=== PATIENT | female | born 1950 | race Caucasian/White ===

== ENCOUNTER → 2018-04-01 08:53 | Outpatient (CLI) | payer MEDICARE, BC, SELFPAY ==
--- NOTE | 2018-04-01 09:17 | CA_ITS ---
PROCEDURE: 2-D M-mode and color Doppler study INDICATIONS FOR THE TEST: Chest painX COPD Heart Murmur Tobacco Smoking Palpitations Fatigue Syncope Edema HypertensionXDiabetes Mellitus Rheumatic Fever SOBXDOEXObesityXHyperlipidemiaX Family History HD Additional History PATIENT INFORMATION HEIGHT: 61 WEIGHT:173 GENDER: Female B/P:164/100 2-D/M-MODE INTERPRETATION: 2-D MEASUREMENTS OBSERVED VALUES IN CMS Right Ventricular Dimension (RVDd) 1.6 Interventricular Septum (Thickness)(IVsd) 1.2 Left Ventricular Internal Dimensions(LVIDd) 4.2 Left Ventricular Posterior Wall (Thickness)(LVPWd) 1.2 Aortic Root 2.5 Aortic Cusp Separation .8 Left Atrial Dimensions (LAD) 4.0 2D 1. Left atrium is mildly enlarged, left ventricle is normal size, there is mild concentric left ventricular hypertrophy, visually estimated ejection fraction 55% with no obvious regional wall motion abnormality. 2. The right atrium and right ventricle are normal size and contractility. 3. The aortic valve is thickened and calcified leaflet continue to display mobility. 4. The mitral and tricuspid valve leaflets are minimally thickened. 5. The pulmonic valve is poorly visualized 6. No significant pericardial effusion noted. DOPPLER INTERROGATION: Doppler interrogation of the aortic, mitral and tricuspid valve reveals presence of mild aortic, mild mitral and tricuspid regurgitation, tricuspid and jet velocity is insufficient for calculation of the right ventricular systolic pressure, grade 1 diastolic dysfunction seen without tissue Doppler evidence of raised left atrial pressure. CONCLUSION: 1. Mildly enlarged left atrium, normal left ventricular size, mild concentric left ventricular hypertrophy, visually estimated ejection fraction 55% with no obvious regional wall motion abnormality, grade 1 diastolic dysfunction seen without tissue Doppler evidence of raised left atrial pressure. 2. Mild aortic, mild mitral and tricuspid regurgitation. 3. No significant pericardial effusion noted.
== END ==
PROVIDERS: PCP Family Medicine; Visit Provider Family Medicine
DX: R06.02 Shortness of breath (principal)
CPT/HCPCS: 93306

== ENCOUNTER → 2018-08-30 12:40 | Outpatient (CLI) | payer MEDICARE, BC, SELFPAY ==
[2018-08-30 12:44] LABS: Adenovirus F 40/41, stool Not Detected (NotDetected); Astrovirus Not Detected (NotDetected); Campylobacter Not Detected (NotDetected); Cryptosporidium Not Detected (NotDetected); Cyclospora Cayetanesis Not Detected (NotDetected); Entamoeba histolytica Not Detected (NotDetected); Enteroaggregative E coli Not Detected (NotDetected); Enteropathogenic E coli Not Detected (NotDetected); Enterotoxigenic E coli Not Detected (NotDetected); Giardia lamblia Not Detected (NotDetected); Norovirus Not Detected (NotDetected); Plesimonas Shigalloides, PCR Not Detected (NotDetected); Rotavirus A Not Detected (NotDetected); Salmonella, PCR Not Detected (NotDetected); Sapovirus Not Detected (NotDetected); Shiga-like toxin E coli Not Detected (NotDetected); Shigella Enterovasive E coli Not Detected (NotDetected); Vibrio Cholerae Not Detected (NotDetected); Vibrio, PCR Not Detected (NotDetected); Yersinia Entercolitica, PCR Not Detected (NotDetected)
[2018-08-30 15:16] LABS: Clostridium Difficile A/B, PCR Detected (NotDetected)
== END ==
PROVIDERS: PCP Family Medicine; Visit Provider Nurse Practitioner Acute Care
DX: R19.7 Diarrhea, unspecified (principal)
CPT/HCPCS: 87507

== ENCOUNTER → 2018-10-10 13:10 | Outpatient (POV) | payer MEDICARE, BC, SELFPAY | PROVIDERS: Visit Provider Nurse Practitioner Acute Care | DX: Z00.00 Encounter for general adult medical examination without abnormal findings (principal) ==

== ENCOUNTER → 2018-11-25 09:31 | Outpatient (CLI) | payer MEDICARE, BC, SELFPAY ==
--- NOTE | 2018-11-25 09:37 | MM_ITS ---
MM Dig screening mamm BI w/CAD CAD Screening COMPARISON: Digital mammograms with CAD 05/18/2017 and analog mammograms 07/12/2006 INDICATION: There is no personal or family history of breast cancer TECHNIQUE: Standard CC and MLO images were obtained. R2 CAD reviewed. FINDINGS: The breasts are composed primarily of fat with minimal scattered fiber glandular densities seen throughout each breast. There are multiple tiny benign-appearing microcalcifications in each breast. Again some of these calcifications are cutaneous in nature. There is a mole marker left axilla. There is no suspicious lesion and there are no suspicious microcalcifications. IMPRESSION: Fibrofatty parenchyma with no suspicious lesion seen BI-RADS Category: 2 Benign Finding(s) RECOMMENDED FOLLOW-UP: 1YR - 1 YEAR FOLLOW-UP (A letter has been sent to the patient regarding results of the study.)
== END ==
PROVIDERS: PCP Family Medicine; Visit Provider Family Medicine
DX: Z12.31 Encounter for screening mammogram for malignant neoplasm of breast (principal)
CPT/HCPCS: 77067

== ENCOUNTER → 2019-12-18 08:48 | Outpatient (CLI) | payer MEDICARE, BC, SELFPAY ==
--- NOTE | 2019-12-18 08:53 | MM_ITS ---
PROCEDURE: MM DIG SCREENING MAMM BI W/CAD CLINICAL INDICATION: SCREENING There is no personal or family history of breast cancer. The patient is on Premarin. COMPARISON: DIGMAMMS MAMMOGRAM SCREEN-RESIDENTIAL LIVING ASSISTANT N/C from 07/12/2006 [facility] DIG MAMM-SCREEN ESHA W/CAD from 05/18/2017 [facility] MM Dig screening mamm BI w/CAD from 11/25/2018 TECHNIQUE: Standard CC and MLO images and 3D Tomosinthisis was obtained. Total images were performed. FINDINGS: Moderate scattered diffuse fibroglandular densities are seen throughout both breasts. There are multiple benign-appearing microcalcifications in each breast. Two small nodular densities left breast inner quadrant best seen on the CC projection and possibly asymmetric glandular elements however recommend the patient return for spot compression views and ultrasound for additional evaluation there are no suspicious microcalcifications. IMPRESSION: Moderate diffuse breast density with possible asymmetric densities left breast BI-RAD Category: 0 Need Additional Imaging Evaluation FOLLOW-UP: IMM Immediate Follow-up Recommended (A letter has been sent to the patient regarding results of the study.) Dictated by: Dr. Sai Bonilla MD 12/20/2019 08:[address] Sai Bonilla MD in [place] 12/20/2019 08:38
== END ==
PROVIDERS: PCP Family Medicine; Visit Provider Family Medicine
DX: Z12.31 Encounter for screening mammogram for malignant neoplasm of breast (principal)
CPT/HCPCS: 77063; 77067

== ENCOUNTER → 2020-01-15 12:56 | Outpatient (CLI) | payer MEDICARE, BC, SELFPAY ==
--- NOTE | 2020-01-15 12:59 | US_ITS ---
PROCEDURE: MM DIG MAMM DX UNILAT LT CAD CLINICAL INDICATION: ABNORMAL MAMM Follow-up abnormal mammogram COMPARISON: [facility] DIG MAMM-SCREEN ESHA W/CAD from 05/18/2017 [facility] MM Dig screening mamm BI w/CAD from 11/25/2018 MM DIG SCREENING MAMM BI W/CAD from 12/18/2019 US BREAST LT COMPLETE from 01/15/2020 TECHNIQUE: Problem solving views with spot compression views and mL view. FINDINGS: There is an asymmetric density in the medial aspect of the right breast. The margins are not well-defined. The benign-appearing calcifications are present. Left breast ultrasound: In the 11 o'clock region of the left breast there is a 7 mm area of increased echogenicity with central decreased echogenicity. This may correspond to the mammographic abnormality. The hannah images of 12/18/2019 do suggest a central lucency at this area. This is felt to be probably benign and 3 month mammographic and sonographic follow-up is recommended . IMPRESSION: BI-RAD Category: 3 Probably Benign Finding Short Term Follow-up FOLLOW-UP: 3M 3 Month Follow-up (A letter has been sent to the patient regarding results of the study.) The Dictated by: Kolton Banks MD 01/23/2020 08:45 Electronically signed by Kolton Banks MD in [place] 01/23/2020 08:45
== END ==
PROVIDERS: PCP Family Medicine; Visit Provider Nurse Practitioner Family
DX: R92.8 Other abnormal and inconclusive findings on diagnostic imaging of breast (principal)
CPT/HCPCS: 76641; 77061; 77065; G0279

== ENCOUNTER → 2020-04-16 11:55 | Outpatient (CLI) | payer MEDICARE, BC, SELFPAY ==
--- NOTE | 2020-04-16 12:25 | MM_ITS ---
PROCEDURE: MM DIG MAMM DX UNILAT LT CAD Digital Breast Tomosynthesis Included Left breast ultrasound complete with axilla CLINICAL INDICATION: ABNORMAL MAMM Follow-up abnormal mammogram and ultrasound COMPARISON: [facility] MM Dig screening mamm BI w/CAD from 11/25/2018 MM DIG SCREENING MAMM BI W/CAD from 12/18/2019 US BREAST LT COMPLETE from 01/15/2020 MM DIG MAMM DX UNILAT LT CAD from 01/15/2020 US BREAST LT COMPLETE from 04/16/2020 TECHNIQUE: Left mammogram and left breast ultrasound FINDINGS: Average fibroglandular tissue. Multiple benign-appearing calcifications are present. Biopsy clip in the lower inner aspect of the left breast. There is a 5 mm nodular opacity in the upper inner aspect of the left breast. This may be somewhat better circumscribed on the tomographic images however, this could be related to the technique as well. Left breast ultrasound: At 11 o'clock, there remains a hyperechoic nodule with central decreased echogenicity at approximately 7 by 5 mm. This does not appear to be significantly changed. No other abnormalities are evident. IMPRESSION: Probably benign nodule in the upper inner left breast. Suggest continued follow-up to confirm stability. This lesion appears at least partially hyperechoic on the ultrasound. Most hyperechoic lesions are benign and could correspond to a lipoma or fibroadenoma lipoma/hamartoma among other less common etiologies. Malignancy is felt to be less likely. Continued follow-up is suggested. BI-RAD Category: 3 Probably Benign Finding Short Term Follow-up FOLLOW-UP: 6M 6Month Follow-up (A letter has been sent to the patient regarding results of the study.) Dictated by: Kolton Banks MD 04/22/2020 10:03 Electronically signed by Kolton Banks MD in [place] 04/22/2020 10:03
== END ==
PROVIDERS: PCP Family Medicine; Visit Provider Nurse Practitioner Family
DX: R92.8 Other abnormal and inconclusive findings on diagnostic imaging of breast (principal)
CPT/HCPCS: 76641; 77061; 77065; G0279

== ENCOUNTER → 2020-08-19 09:15 | Outpatient (CLI) | payer MEDICARE, BC, SELFPAY ==
--- NOTE | 2020-08-19 09:17 | XR_ITS ---
PROCEDURE: XR DEXA AXIAL SKELETON CLINICAL HISTORY: OSTEOPENIA,POST MENOPAUSAL COMPARISON: CR,DX BONE3 BONE DENSITOMETRY(HIP:LT SPINE from 05/18/2017 FINDINGS: The right hip BMD is 0.726 with a T-score of -1.1. The left hip BMD is 0.668 with a T-score of -2.2. The lumbar spine BMD is 1.269 with a T-score of 2.0. Previously the lowest density was in the left femoral neck with a T-score of 8 of 1.5. Bone mineral density has somewhat decreased compared to the previous study IMPRESSION: This patient is considered osteopenic according to the World Health Organization criteria. Bone density is between 10 and 25 percent below young normal. Fracture risk is moderate. Treatment is advised. Based on these results a follow-up exam is recommended in 2 year. Dictated by: Kolton Banks MD 08/20/2020 08:24 Kolton Banks MD in [place] 08/20/2020 08:24
== END ==
PROVIDERS: PCP Family Medicine; Visit Provider Family Medicine
DX: M85.89 Other specified disorders of bone density and structure, multiple sites (principal)
CPT/HCPCS: 77080

== ENCOUNTER → 2021-02-06 13:44 | Outpatient (CLI) | payer MEDICARE, BC, SELFPAY ==
--- NOTE | 2021-02-06 13:47 | MM_ITS ---
PROCEDURE: MM DIG MAMM BI DX W/CAD Digital Breast Tomosynthesis Included CLINICAL INDICATION: 6 MONTH FOLLOW UP COMPARISON: MG MM DIG SCREENING MAMM BI W/CAD from 12/18/2019 MG MM DIG MAMM DX UNILAT LT CAD from 01/15/2020 MG MM DIG MAMM DX UNILAT LT CAD from 04/16/2020 TECHNIQUE: Standard CC and MLO images and 3D Tomosynthesis was obtained. R2 CAD reviewed. FINDINGS: Fibroglandular densities are seen throughout both breasts. There are scattered benign-appearing microcalcifications in each breast. There is faint arterial calcification in each breast. This accounts for CAD markers on each breast. The previously noted nodular density inner quadrant left breast is not definitely seen may have been a small cyst which decompressed. There is no new or suspicious lesion in either breast and no suspicious microcalcifications. IMPRESSION: Fibrofatty parenchyma with no suspicious lesions seen BI-RAD Category: 2 Benign Finding(s) FOLLOW-UP: 1YR 1 Year Follow-up (A letter has been sent to the patient regarding results of the study.) Dictated by: Dr. Sai Bonilla MD 02/11/2021 10:39 Dr. Sai Bonilla MD in [place] 02/11/2021 10:39
--- NOTE | 2021-02-06 13:47 | US_ITS ---
PROCEDURE: US BREAST LT COMPLETE CLINICAL INDICATION: 6 MONTH FOLLOW UP COMPARISON: US US BREAST LT COMPLETE from 04/16/2020 MG MM DIG MAMM BI DX W/CAD from 02/06/2021 FINDINGS: No suspicious findings or mass lesions. There are few lymph nodes noted in the left axilla measuring up to 1 centimeter and demonstrate central fatty hilum and normal morphology. IMPRESSION: No suspicious findings or mass lesions. Please see diagnostic mammogram report of the same date for further recommendations. Dictated by: Polina Reveles 02/19/2021 09:53 Polina Reveles in [place] 02/19/2021 09:53
== END ==
PROVIDERS: PCP Family Medicine; Visit Provider Family Medicine
DX: R92.8 Other abnormal and inconclusive findings on diagnostic imaging of breast (principal)
CPT/HCPCS: 76641; 77062; 77066; G0279

== ENCOUNTER 2021-05-12 14:33 | Emergency (ER) | payer MEDICARE, BC, SELFPAY ==
[2021-05-12 14:34] VITALS: BP 155/90; PULSE 81; RESP 16; TEMP 36.4; O2SAT 95; BMI 27.3; BMI 27.4
--- NOTE | 2021-05-12 14:35 | PC.NURSE ---
fsbs 176
--- NOTE | 2021-05-12 14:35 | CT_ITS ---
PROCEDURE: CT CERVICAL SPINE WO CON CLINICAL INDICATION: L SIDED WEAKNESS COMPARISON: CT CSWO CT CERVICAL SPINE W/O CONT from 09/26/2017 TECHNIQUE: Axial images obtained with sagittal and coronal reformats. All CT scans at the facility use one or more dose reduction, viz: automated exposure control, ma/kV adjustment per patient size (including targeted exams where dose is matched to indication, i.e. head), or iterative reconstruction technique. Axial spiral CT scanning performed of the cervical spine beginning at the base of the skull and continuing to the upper T-spine. 3-D multiplanar reconstruction with 3-D manipulation of volumetric data set in image rendering was completed by the radiologist and/or technologist with the supervision of the radiologist on independent workstation. FINDINGS: There is normal alignment. No acute fracture or dislocation is evident. Patient's head is rotated toward the right. C2-C3: Right-sided foraminal narrowing from facet and uncovertebral hypertrophy C3-C4: Mild left-sided foraminal narrowing. C4-C5: Degenerative disc disease with endplate hypertrophic change with bilateral foraminal narrowing left greater than right and with mild bulging disc with canal stenosis of 8 mm. Not significantly changed. Prominent anterior osteophytes at C4-C5 C5-C6: Degenerative disc disease with mild left foraminal narrowing. Mildly prominent anterior osteophytes. Canal stenosis of 8 mm. Slight progression of degenerative disc disease. C6-C7: Degenerative disc disease with prominent anterior osteophytes with mild bilateral foraminal narrowing slightly greater on the left. The degenerative disc disease has progressed at C6-C7 with some endplate irregularity. C7-T1: Unremarkable Upper thoracic images shows a small posterior layering effusion superiorly. IMPRESSION: Multilevel cervical spondylosis with canal stenosis and facet narrowing as described above. Left-sided pleural effusion incompletely visualized Dictated by: Kolton Banks MD 05/12/2021 15:18 Kolton Banks MD in [place] 05/12/2021 15:18
--- NOTE | 2021-05-12 14:35 | CT_ITS ---
PROCEDURE: CT HEAD/BRAIN WO CON CLINICAL INDICATION: L SIDED WEAKNESS COMPARISON: CT CT HEAD/BRAIN WO CON from 12/11/2019 TECHNIQUE: Axial images obtained. All CT scans at the facility use one or more dose reduction, viz: automated exposure control, ma/kV adjustment per patient size (including targeted exams where dose is matched to indication, i.e. head), or iterative reconstruction technique. FINDINGS: No midline shift, mass effect, intracranial hemorrhage, hydrocephalus, or extra-axial fluid collection is evident. There is generalized atrophy with hypoattenuation of the periventricular white matter consistent with microangiopathic changes. The calvarium has an unremarkable appearance. There is opacification left mastoid air cells. Soft tissue density is present in the left maxillary sinus and could represent a large retention cyst occupying most of the left maxillary sinus. IMPRESSION: No acute intracranial finding Left mastoid sinus disease. Soft tissue density left maxillary sinus which may represent large retention cyst Dictated by: Kolton Banks MD 05/12/2021 15:10 Kolton Banks MD in [place] 05/12/2021 15:10
--- NOTE | 2021-05-12 14:37 | XR_ITS ---
PROCEDURE: XR CHEST PORTABLE CLINICAL HISTORY: L SIDED WEAKNESS COMPARISON: CR CXR2 CHEST-AP VIEW ONLY from 09/26/2017 CR XR CHEST 2V from 12/11/2019 FINDINGS: Mild cardiomegaly without failure. There is increased density along the left hemithorax in the mid aspect which may in part be due to the overlying scapula. Follow-up chest may confirm. The right lung is clear. No acute bony abnormalities. IMPRESSION: Increased density in the left lung which may be due to a the overlying scapula and may be confirmed with follow-up. Otherwise negative Dictated by: Kolton Banks MD 05/12/2021 15:37 Kolton Banks MD in [place] 05/12/2021 15:37
[2021-05-12 14:45] VITALS: BP 141/86; PULSE 94; RESP 16; O2SAT 96
--- NOTE | 2021-05-12 14:45 | PC.NURSE ---
return from CT with pt, this nurse accompanied pt
--- NOTE | 2021-05-12 14:45 | [facility].EDGENADL ---
ED Disposition Clinical Impression: CVA (cerebral vascular accident) Qualifiers: CVA mechanism: unspecified Qualified Code(s): I63.9 - Cerebral infarction, unspecified Disposition: Xfer Short-Term Hosp Condition on Discharge: Critical Time of Disposition: 15:17 - Critical Care Critical Care Time: Yes (50) Attestation: On , the high probability of a clinically significant, sudden or life threatening deterioration of the following system(s) required my full and direct attention, intervention and personal management. The time I documented below is in addition to time spent performing reported procedures but includes the following listed in this critical care notation. Total Critical Care Time: 50 Vital system(s) involved:: Central Nervous System My critical care processes included: Assessment & monitoring of V/S, Initial and Re-exams, Data Review/Interpretation, Coordinating Care, Medication Orders and management, Documentation Medical Decision Making - Medical Records Medical records reviewed: Yes: I reviewed the patient's medical records. - Deni Inquiry Pt receiving controlled substance: No Orders (Tests/Meds): ORDERS Category Date Time Status CT cervical spine wo con Stat Cat Scan 05/12/21 14:[address] head/brain wo con Stat Cat Scan 05/12/21 14:35 Taken XR chest portable Stat Exams 05/12/21 14:37 Ordered Basic Metabolic Panel Stat Lab 05/12/21 14:50 Received Complete Blood Count Auto Diff Stat Lab 05/12/21 14:50 Received PT/PTT Stat Lab 05/12/21 14:50 Received Troponin I Q3H Lab 05/12/21 17:45 Ordered Troponin I Q3H Lab 05/12/21 20:45 Ordered Troponin I Stat Lab 05/12/21 14:50 Received - CT Data CT Scan: Head Time Received: 15:[address] Reviewed: Yes: I have reviewed the patient's CT results Preliminary Findings: Normal/NAD Findings Narrative: No acute bleed, mass, midline shift appreciated - ECG Data Tracing #1 A flutter with variable block, 9 9 bpm, prolonged QT, no ST ovation or depression. ECG initial impression date: 05/12/21 ECG initial impression time: 15:03 Medical Decision Narrative: 71yo F evaluated upon arrival for stroke. Patient has obvious left-sided neglect, no use of left upper or lower extremity. NIH exam is completed quickly and patient is sent directly to CAT scan. Patient returns in stable condition but without improvement. My wet read of the patient's CT head without contrast shows no acute bleed. Have placed a call to the [facility] stroke team to consult prior to giving TPA. Patient scores a 26 on the NIH stroke scale and is unable to fully complete the exam secondary to total aphasia. Case discussed with Dr. Singh of the stroke team at [facility]. He request the patient be sent immediately to the emergency department at the [facility]. He states not to give the patient TPA at this time given the close proximity of our facility to theirs. This is verbally confirmed. Patient is sent with CT scan disc. General Adult HPI - General Stated complaint: unresponsive Time Seen by Provider: 05/12/21 14:45 Mode of Arrival: EMS Source of Information: EMS - History of Present Illness HPI narrative: 71yo F brought promptly emergency department via EMS secondary to decreased responsiveness. EMS was called out at 1400. Patient is mute but able to follow commands. Patient's daughter arrives later and states her last known normal was approximately 1345. She denies any history of previous stroke, head bleed, GI bleed, recent surgery, recent surgery. - Related Data Home Medications Medication Instructions Recorded Confirmed Dicyclomine HCl [Bentyl 10mg 0 mg PO BID 09/28/18 12/11/19 capsule] Divalproex Sodium [Depakote ER] 500 mg PO DAILY 09/28/18 12/11/19 Estrogens, Conjugated [Premarin] 1.25 mg PO DAILY 09/28/18 12/11/19 Etodolac [Etodolac 400mg Tab] 400 mg PO BID 09/28/18 12/11/19 Hydralazine HCl 100 mg PO DAILY 11
[2021-05-12 15:00] VITALS: BP 140/77; PULSE 99; RESP 16; O2SAT 95
--- NOTE | 2021-05-12 15:03 | ECG_ITS ---
APPROVED REPORT Exam: Resting ECG HR:99 bpm ECG Measurements Heart Rate 99 AXES SC P 97 QRSd 98 QRS 20 QT 382 T 69 QTc 490 Conclusion Atrial flutter with variable AV block Prolonged QT Abnormal ECG Electronically signed by : Oral Skinner, 05/14/2021 17:40:11
--- NOTE | 2021-05-12 15:04 | PC.NURSE ---
contacting [facility] for stroke team per ER request
[2021-05-12 15:06] LABS: Basophils % 0.4 % (0.1-2.0); Eosinophils % 0.4 % (0.1-12.0); Hematocrit 35.3 % (37.0-47.0); Hemoglobin 12.1 g/dL (12.2-16.2); Lymphocytes # 1.6 K/mm3 (0.7-4.5); Lymphocytes % 20.6 % (10-50); Mean Corpuscular HGB Conc 34.2 g/dL (31.8-35.4); Mean Corpuscular Hemoglobin 30.7 pg (27.0-31.2); Mean Platelet Volume 9.2 fl (7.4-10.4); Monocytes # 0.5 K/mm3 (0.1-1.0); Monocytes % 6.2 % (1.7-9.3); Neutrophils # 5.6 K/mm3 (1.8-7.8); Neutrophils % 72.5 % (37.0-80.0); Platelet Count 198 K/mm3 (142-424); Red Blood Count 3.93 M/mm3 (4.20-5.40); White Blood Count 7.7 K/mm3 (4.8-10.8)
--- NOTE | 2021-05-12 15:21 | PC.NURSE ---
pt accepted to [facility] ED
[2021-05-12 15:26] VITALS: BP 140/77; PULSE 99; RESP 16; TEMP 36.4; O2SAT 95
--- NOTE | 2021-05-12 15:26 | PC.NURSE ---
report given to [facility]
--- NOTE | 2021-05-12 15:30 | PC.NURSE ---
report called to Sloan Peña RN at ER at this time
--- NOTE | 2021-05-12 16:54 | PC.NURSE ---
NIH score of 26
== END 2021-05-12 15:26 | disposition short-term general hospital (02) ==
PROVIDERS: Emergency Provider Family Medicine
DX: I69.320 Aphasia following cerebral infarction (principal); I10 Essential (primary) hypertension; G40.909 Epilepsy, unspecified, not intractable, without status epilepticus; E78.5 Hyperlipidemia, unspecified; K21.9 Gastro-esophageal reflux disease without esophagitis; Z88.2 Allergy status to sulfonamides; R29.726 NIHSS score 26
CPT/HCPCS: 70450; 71045; 72125; 85025; 93005; 99284